=== PATIENT | female | born 1975 | race Caucasian/White ===

== ENCOUNTER 2023-04-15 19:59 | Emergency (ER) | payer SELFPAY ==
[~2023-04-15] VITALS: Ht 160 cm; Wt 68.9 kg
[2023-04-15 20:12] VITALS: BP 132/81; PULSE 114; RESP 20; TEMP 101.8; O2SAT 97
[2023-04-15] MEDS ORDERED: NACL 0.9% 1,000 ML IV ONE (20:25)
[2023-04-15] MEDS ORDERED: diphenhydrAMINE 50 MG/ML VIAL IVP ONE (21:20)
[2023-04-15] MEDS ORDERED: METOCLOPRAMIDE 10 MG/2 ML INJ VIAL IVP ONE (21:20)
[2023-04-15] MEDS ORDERED: ONDA8TAB87 PO ×2 (21:25→22:48)
[2023-04-15] MEDS ORDERED: NORT50CA PO ×2 (21:25→22:48)
[2023-04-15] MEDS ORDERED: KETOROLAC 30 MG/ML VIAL IVP ONE (21:30)
[2023-04-15 22:42] VITALS: BP 171/70; PULSE 95; RESP 24; TEMP 99.7; O2SAT 95
== END 2023-04-15 22:45 | disposition home or self-care (01) ==
LOC: MED 19:59
DX: G43.909 Migraine, unspecified, not intractable, without status migrainosus (principal); Z79.899 Other long term (current) drug therapy
CPT/HCPCS: 81025; 96361; 96374; 99283; J1885